=== PATIENT | female | born 1990 | race Caucasian/White ===

== ENCOUNTER 2024-04-02 14:35 | Outpatient (CLI) | payer OTHER | END 2024-04-02 14:36 | disposition home or self-care (01) | LOC: SCSMRI 14:35 | PROVIDERS: ATTEND Internal Medicine Hematology & Oncology | DX: C50.811 Malignant neoplasm of overlapping sites of right female breast (principal); R51.9 Headache, unspecified | CPT/HCPCS: 70250; 70553 ==

== ENCOUNTER 2024-04-16 08:10 | Outpatient (CLI) | payer OTHER ==
[2024-04-16] MEDS ORDERED: Iopamidol 370 76% 100 ML VIAL ONE (12:59)
== END 2024-04-16 08:11 | disposition home or self-care (01) ==
LOC: CT 08:10
PROVIDERS: ATTEND Internal Medicine Hematology & Oncology
DX: R51.9 Headache, unspecified (principal); C50.811 Malignant neoplasm of overlapping sites of right female breast; D70.8 Other neutropenia; R90.89 Other abnormal findings on diagnostic imaging of central nervous system
CPT/HCPCS: 70470; Q9967